=== PATIENT | female | born 1965 | race Caucasian/White ===

== ENCOUNTER 2022-09-13 12:27 | Day surgery (SDC) | payer OTHER ==
[~2022-09-13 12:27] MED LIST: Propofol 200 MG/20 ML SDV ONE; fentaNYL 100 MCG/2 ML SDV ONE
[2022-09-13] MEDS: Lactated Ringers 1,000 ML IV SCH (12:51)
[2022-09-13] MEDS ORDERED: Propofol 200 MG/20 ML SDV ONE (13:43)
[2022-09-13 14:30] VITALS: BP 150/75; PULSE 77
== END 2022-09-13 15:35 | disposition home or self-care (01) ==
LOC: VM.SDS 12:27
PROVIDERS: ATTEND Family Medicine
DX: Z12.11 Encounter for screening for malignant neoplasm of colon (principal); D12.7 Benign neoplasm of rectosigmoid junction; K57.30 Diverticulosis of large intestine without perforation or abscess without bleeding; I10 Essential (primary) hypertension; E66.9 Obesity, unspecified; F33.0 Major depressive disorder, recurrent, mild; M54.50 Low back pain, unspecified; G89.29 Other chronic pain; Z98.890 Other specified postprocedural states; Z79.899 Other long term (current) drug therapy; Z88.8 Allergy status to other drugs, medicaments and biological substances; Z68.37 Body mass index [BMI] 37.0-37.9, adult
CPT/HCPCS: 00812; J2704; J3010; J7120